=== PATIENT | female | born 1940 | race Caucasian/White ===

== ENCOUNTER → 2017-03-21 | Outpatient (CLI) | payer OTHER, BC | LOC: RAD 07:26 | DX: K21.9 Gastro-esophageal reflux disease without esophagitis (principal); J45.909 Unspecified asthma, uncomplicated; R05 Cough; R49.0 Dysphonia; R09.89 Other specified symptoms and signs involving the circulatory and respiratory systems ==

== ENCOUNTER → 2017-06-10 | Outpatient (CLI) | payer OTHER, BC | LOC: RAD 05:16 | DX: Z12.31 Encounter for screening mammogram for malignant neoplasm of breast (principal) ==

== ENCOUNTER → 2018-06-11 | Outpatient (CLI) | payer OTHER, BC | LOC: RAD 01:18 | DX: Z12.31 Encounter for screening mammogram for malignant neoplasm of breast (principal) ==

== ENCOUNTER → 2019-06-14 | Outpatient (CLI) | payer OTHER, BC | LOC: RAD 01:16 | DX: Z12.31 Encounter for screening mammogram for malignant neoplasm of breast (principal) ==

== ENCOUNTER → 2020-05-19 | Outpatient (CLI) | payer OTHER, BC ==
[~2020-05-19] VITALS: Ht 160 cm; Wt 77.1 kg
[~2020-05-19] MED LIST: ALLEGRA ALLERG180 MG PO; AZELASTINE205.5 MCG/ NARES; CALCIUM CARBON500 MG PO; FISH OIL 1,0001 EAC9 PO; FLONASE 0.05%50 MCG NARES; MUCINEX600 MG PO; MULTIVITAMINS1 EAC7 PO; PROAIR HFA8.5 GM INH; PROTONIX 20 MG20 MG PO; SINGULAIR 10 MG10 M1 PO; SYMBICORT160 MCG/4. INH; VENTOLIN HFA 1818 GM INH
--- NOTE | 2020-05-19 13:37 | P ---
[facility] [place] [address] PROCEDURE REPORT Name: DAVID PAT Room #: [facility].#: [id number] Admission: 05/19/20 Attend Phys: Mandeep Hendricks MD Discharge: Date of : 42 Report #: [id number] THIS REPORT FOR: cc: Isaiah Mathew MD, David R. 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 She presents for high risk screening colonoscopy. PREOPERATIVE DIAGNOSIS: High risk screening colonoscopy. POSTOPERATIVE DIAGNOSES: 1. Diminutive polyp at 70 cm. 2. Moderate sigmoid diverticulosis coli. 3. Small internal hemorrhoids. MEDICATIONS: Deep sedation with propofol per Anesthesia. SPECIMEN: Colon polyp at 70 cm. ESTIMATED BLOOD LOSS: 3 mL. PROCEDURE: Colonoscopy to cecum and terminal ileum with biopsy. FINDINGS: Prior to propofol sedation, procedure of colonoscopy discussed with the patient as well as potential risks and its complications. She indicates she understands and desires to proceed. DESCRIPTION OF PROCEDURE: With the patient in left lateral decubitus position, digital examination was completed, which revealed no abnormalities. Subsequently, the Olympus video colonoscope was introduced into the rectum, advanced under direct vision to the cecum. This was done with minimal difficulty. The cecum was identified by the ileocecal valve and the appendiceal orifice. I was able to visualize the distal segment of the terminal ileum, which was inspected and noted to be unremarkable. At that point, the scope was slowly withdrawn and careful circumferential views were obtained including retroflexing the scope in the ascending colon. Upon slow withdrawal of the scope, the prep was good. The mucosa within normal limits, normal vascular pattern, normal light reflex. As we withdrew the scope, no abnormalities were [facility] [address] [place] [address] PROCEDURE REPORT Name: DAVID PAT Room #: [facility].#: [id number] Admission: 05/19/20 Attend Phys: Mandeep Hendricks MD Discharge: Date of : 42 Report #: [id number] noted until about 70 cm, at which point a diminutive polyp was seen and removed with biopsy forceps. The scope was further withdrawn and no additional neoplastic lesions were seen. In the distal descending and sigmoid colon, there was moderate diverticular disease without endoscopic evidence of diverticulitis. Scope was withdrawn in the rectum. No abnormalities were seen. Upon retroflexion, small nonbleeding internal hemorrhoids were seen. Scope was withdrawn. The patient tolerated the procedure well. CONDITION OF THE PATIENT UPON DISCHARGE: Following procedure, the patient was drowsy, arousable and conversant and will be discharged to home when fully ambulatory. INSTRUCTIONS TO THE PATIENT AND FAMILY AT THE TIME OF DISCHARGE: One diminutive polyp identified, removed today as described. We will follow up on the pathology. If this is an adenoma, I would suggest she return in 5 years, and if her health is good and longevity is reasonable in 5 years, then a colonoscopy would be indicated. However, if the polyp is not an adenoma, typical recommendation will be 10 years and she is unlikely to gain significant benefit from a colonoscopy 10 years hence. Last colonoscopy 5 years ago. Withdrawal time from cecum was 12 minutes 33 seconds. <ELECTRONICALLY SIGNED> By: Mandeep Hendricks MD 05/19/20 1337 [id number] Mandeep Hendricks MD /nt
--- NOTE | 2020-05-22 17:04 | PATH ---
[facility] [address] [place] [address] PATHOLOGY RPT PROCEDURE Name: DAVID PAT Room #: [facility] M..#: [id number] Admission: 05/19/20 Date of : 42 Discharge: Report #: [id number] Path Case #: [id number] [facility] Accession Number: [id number] . 01 Material submitted: . colon - POLYP AT 70CM . 01 Clinical history: . History of polyps . 02 Diagnosis: Polyp, at 70 cm, endoscopic biopsy: - Tubular adenoma. - Negative for high-grade dysplasia. (IUV:batchmaker; 05/22/2020) MBR 05/22/2020 1117 Local . 02 Electronically signed: . Tamra Orozco MD, Pathologist NPI- [id number] . 01 Gross description: . The specimen is received in formalin, labeled "Lindle David, polyp at 70 cm". Received is a segment of pale witt soft tissue measuring 0.5 cm in maximum dimensions. The specimen is submitted entirely in cassette A1. (CAA; 05/19/2020) QAC/QAC 05/19/2020 1814 Local . 02 Pathologist provided ICD-10: D12.6 . 02 CPT . 695889 Specimen Comment: A courtesy copy of this report has been sent to [phone], [phone] Specimen Comment: [phone], Specimen Comment: Report sent to ,DR MUELLER / DR MUELLER Performed at: [address], [place], [place] [id number] MD Anderson Astudillo MD Phone: [phone] Performed at: [address] [id number] MD Tamra Orozco MD Phone: [phone]
== END | disposition home or self-care (01) ==
LOC: GI 04-21 21:09
PROVIDERS: ATTEND Specialist
DX: Z12.11 Encounter for screening for malignant neoplasm of colon (principal); Z86.010 Personal history of colon polyps; D12.4 Benign neoplasm of descending colon; K57.30 Diverticulosis of large intestine without perforation or abscess without bleeding; K64.8 Other hemorrhoids; K21.9 Gastro-esophageal reflux disease without esophagitis; J43.9 Emphysema, unspecified; Z98.890 Other specified postprocedural states; Z11.59 Encounter for screening for other viral diseases; Z79.899 Other long term (current) drug therapy; Z88.8 Allergy status to other drugs, medicaments and biological substances
CPT/HCPCS: 62110; 62900

== ENCOUNTER → 2020-07-25 | Outpatient (CLI) | payer OTHER, BC | LOC: RAD 08:43 | PROVIDERS: ATTEND Obstetrics & Gynecology | DX: Z12.31 Encounter for screening mammogram for malignant neoplasm of breast (principal) ==

== ENCOUNTER → 2020-09-12 | Outpatient (CLI) | payer OTHER, BC | LOC: RAD 07:40 | PROVIDERS: ATTEND Pediatrics | DX: J44.9 Chronic obstructive pulmonary disease, unspecified (principal); R06.02 Shortness of breath ==

== ENCOUNTER → 2021-03-15 | Outpatient (CLI) | payer OTHER, BC | LOC: RAD 11:29 | PROVIDERS: ATTEND Pediatrics | DX: J30.9 Allergic rhinitis, unspecified (principal); J44.9 Chronic obstructive pulmonary disease, unspecified ==

== ENCOUNTER → 2021-08-09 | Outpatient (CLI) | payer OTHER, BC | LOC: BC 10:30 | PROVIDERS: ATTEND Family Medicine | DX: Z12.31 Encounter for screening mammogram for malignant neoplasm of breast (principal) ==